=== PATIENT | female | born 2000 | race Caucasian/White ===

== ENCOUNTER 2024-08-22 22:25 | Emergency (ER) | payer OTHER ==
[~2024-08-22] VITALS: Ht 119.4 cm; Wt 72.3 kg
[2024-08-22 22:45] VITALS: TEMP 98.7
[2024-08-23] MEDS: ACETAMINOPHEN 500 MG TABLET PO ONE (00:20)
[2024-08-23 02:11] VITALS: BP 111/70; PULSE 72; RESP 16; O2SAT 96
== END 2024-08-23 02:17 | disposition home or self-care (01) ==
LOC: EMS 22:25
DX: S13.9XXA Sprain of joints and ligaments of unspecified parts of neck, initial encounter (principal); S00.03XA Contusion of scalp, initial encounter; S20.223A Contusion of bilateral back wall of thorax, initial encounter; Z98.890 Other specified postprocedural states; W19.XXXA Unspecified fall, initial encounter; Y93.89 Activity, other specified; Y92.89 Other specified places as the place of occurrence of the external cause; Y99.8 Other external cause status
CPT/HCPCS: 70450; 72070; 72125; 99284